=== PATIENT | female | born 1950 | race African-American/Black ===

== ENCOUNTER 2020-05-27 03:03 | Inpatient (IN) ==
[2020-05-27] MEDS ORDERED: SODIUM PHOSPHATE IV PRN (06:38)
[2020-05-27] MEDS ORDERED: MAGNESIUM SULF RIDER 4 GM in PREMIX 1 EACH IV PRN (06:38)
[2020-05-27] MEDS ORDERED: GLUCAGON 1 MG VIAL IM PRN ×2 (06:38→08:16)
[2020-05-27] MEDS ORDERED: DEXTROSE 50% 25 GM/50 ML VIAL IV PRN ×3 (06:38→08:16)
[2020-05-27] MEDS ORDERED: ONDANSETRON 4 MG/2 ML VIAL IV PRN (06:38)
[2020-05-27] MEDS ORDERED: SODIUM CHLORIDE 0.9% IV PRN (06:38)
[2020-05-27] MEDS ORDERED: MAGNESIUM SULF RIDER 2 GM in PREMIX 1 EACH IV PRN (06:38)
[2020-05-27] MEDS ORDERED: SODIUM BICARB INJ 100 MEQ in STERILE WATER INJ 400 ML IV PRN (06:38)
[2020-05-27] MEDS ORDERED: INSULIN REGULAR 100 UNIT/ML IV ONE (06:38)
[2020-05-27] MEDS ORDERED: SODIUM CHLORIDE 0.9% 1,000 ML IV ONE (06:38)
[2020-05-27] MEDS ORDERED: POTASSIUM CHLORIDE RIDER 10 MEQ in PREMIX 1 EACH IV PRN (06:38)
[2020-05-27 06:59] LABS: Basophils % 0.2 % (0.0-0.8); Eosinophils % 0.1 % (0.00-10.9); Hematocrit 30.7 VOL% (35.7-47.0); Immature Granulocytes % 0.4 %; Immature Granulocytes Absolute 0.04 #; Lymphocytes # 2.4 10*3/uL (1.4-4.0); Lymphocytes % 21.3 % (21.3-54.2); Mean Corpuscular HGB Conc 32.6 GM/DL (32-36); Mean Corpuscular Volume 90.3 FL (87-102); Mean Platelet Volume 8.5 FL (9.6-12.0); Monocytes % 8.9 % (1.7-12.7); Neutrophils % 69.1 % (38.7-73.9); Platelet Count 373 T/CUMM (130-400); Red Cell Distribution Width 13.6 % (9.3-17.3); White Blood Count 11.4 T/CUMM (4-12)
[2020-05-27] MEDS ORDERED: INSULIN REGULAR DRIP 100 ML IV SCH (07:00)
[2020-05-27 07:12] LABS: Bilirubin,Urine Negative (Negative); Blood, Urine Moderate mg/dL (Negative); Glucose,Urine (UA) >=500 mg/dL (Negative); Hyaline Casts,Urine 466 /LPF (0-3); Ketones,Urine Negative (Negative); Mucus,Urine Occasional /LPF (Occasional); Nitrite,Urine Negative (Negative); Protein,Urine 100 MG/DL; Red Blood Cell Casts,Urine 3 /LPF (<1); Urine Appearance CLOUDY (Clear); Urine Color Yellow (Yellow); Urine Urobilinogen < 2.0 EU/DL (0.2-1.0); WBC,Urine 19 /HPF (0-6)
[2020-05-27 07:27] LABS: ABG Base Excess -7.1 MMOL/L (-2.5-2.5); ABG HCO3 18.6 MMOL/L (20-26); ABG Oxygen Saturation 98.7 % (95-100); ABG PCO2 24.6 MM HG (35-48); ABG TCO2 14.3 MMOL/L (23-27); Allen Test Positive
[2020-05-27] MEDS ORDERED: SODIUM CHLORIDE 0.9% 1,000 ML IV SCH ×2 (07:38→11:38)
[2020-05-27 07:43] LABS: Alanine Aminotransferase 44 U/L (13-56); Alkaline Phosphatase 132 U/L (45-117); Aspartate Amino Transferase 35 U/L (0-37); Bilirubin,Total < 0.39 MG/DL (0.2-1.0); Blood Urea Nitrogen 11 MG/DL (7-18); Calcium 7.6 MG/DL (8.5-10.1); Estimated Glom Filtration Rate 92 ML/MIN; Glucose 175 MG/DL (74-106); Osmolality,Calculated 283.3 MOS/KG (273-304); Total Protein 5.5 G/DL (6.4-8.3)
[2020-05-27 07:57] LABS: Risk Ratio 3.43; Thyroid Stimulating Hormone 0.573 uIU/ml (0.358-3.74); VLDL CHOLESTEROL 28.6 MG/DL
[2020-05-27] MEDS: ENOXAPARIN 40 MG/0.4 ML SYRINGE SUBCUT SCH (08:09)
[2020-05-27] MEDS ORDERED: FAMOTIDINE 20 MG/2 ML VIAL IV SCH (08:30)
[2020-05-27] MEDS: HYDROmorphone 2 MG/1 ML VIAL IV PRN ×2 (08:59→17:48)
[2020-05-27] MEDS ORDERED: PANTOPRAZOLE 40 MG TABLET PO SCH (09:00)
[2020-05-27] MEDS: PANTOPRAZOLE 40 MG TABLET PO SCH ×2 (09:03→21:16)
[2020-05-27] MEDS: INSULIN GLARGINE 100 UNIT/ML SUBCUT SCH ×2 (09:13→09:29)
[2020-05-27] MEDS: POTASSIUM CHLORIDE 20 MEQ TABLET PO SCH ×4 (09:19→21:15)
[2020-05-27] MEDS: MAGNESIUM SULF RIDER 4 GM in PREMIX 1 EACH IV SCH ×2 (09:50→16:24)
[2020-05-27] MEDS: DEXT 5% LACT RING KCL 20 MEQ 20 MEQ/1,000 ML BAG IV SCH ×3 (09:50→23:10)
[2020-05-27] MEDS: INSULIN LISPRO 100 UNIT/ML SUBCUT SCH ×4 (10:23→21:16)
[2020-05-27] MEDS ORDERED: NON-FORMULARY MEDICATION (Zolpidem [Ambien] 10 MG) PO SCH (12:00)
[2020-05-27 12:21] LABS: Calcium 7.6 MG/DL (8.5-10.1); Osmolality,Calculated 288.1 MOS/KG (273-304)
[2020-05-27 18:56] LABS: Calcium 7.8 MG/DL (8.5-10.1)
[2020-05-27 18:57] LABS: Osmolality,Calculated 281.3 MOS/KG (273-304)
[2020-05-27] MEDS: ZALEPLON 5 MG CAPSULE PO PRN (21:51)
[2020-05-27] MEDS ORDERED: SODIUM CHLORIDE 0.45% 1,000 ML IV SCH (23:38)
[2020-05-28] MEDS: DEXT 5% LACT RING KCL 20 MEQ 20 MEQ/1,000 ML BAG IV SCH ×6 (03:05→22:00)
[2020-05-28] MEDS: INSULIN LISPRO 100 UNIT/ML SUBCUT SCH ×6 (03:06→21:59)
[2020-05-28 04:04] LABS: Basophils % 0.2 % (0.0-0.8); Eosinophils % 0.4 % (0.00-10.9); Hematocrit 29.9 VOL% (35.7-47.0); Immature Granulocytes % 0.4 %; Immature Granulocytes Absolute 0.03 #; Lymphocytes # 1.9 10*3/uL (1.4-4.0); Lymphocytes % 22.7 % (21.3-54.2); Mean Corpuscular HGB Conc 33.4 GM/DL (32-36); Mean Corpuscular Volume 88.7 FL (87-102); Mean Platelet Volume 8.9 FL (9.6-12.0); Monocytes % 7.2 % (1.7-12.7); Neutrophils % 69.1 % (38.7-73.9); Platelet Count 349 T/CUMM (130-400); Red Blood Count 3.37 MC/CUMM (3.8-5.5); Red Cell Distribution Width 13.9 % (9.3-17.3); White Blood Count 8.2 T/CUMM (4-12)
[2020-05-28 04:24] LABS: Alanine Aminotransferase 50 U/L (13-56); Albumin 1.9 G/DL (3.4-5.0); Alkaline Phosphatase 134 U/L (45-117); Aspartate Amino Transferase 43 U/L (0-37); Bilirubin,Total < 0.39 MG/DL (0.2-1.0); Blood Urea Nitrogen 4 MG/DL (7-18); Calcium 7.8 MG/DL (8.5-10.1); Estimated Glom Filtration Rate 105 ML/MIN; Glucose 190 MG/DL (74-106); Osmolality,Calculated 280.4 MOS/KG (273-304); Total Protein 5.5 G/DL (6.4-8.3)
[2020-05-28] MEDS: LACTATED RINGERS 1,000 ML IV SCH (07:42)
[2020-05-28] MEDS: INSULIN GLARGINE 100 UNIT/ML SUBCUT SCH (08:36)
[2020-05-28] MEDS: ACETAMINOPHEN 325 MG TABLET PO PRN (08:40)
[2020-05-28] MEDS: PANTOPRAZOLE 40 MG TABLET PO SCH ×2 (08:40→20:46)
[2020-05-28] MEDS ORDERED: propofoL 200 MG/20 ML VIAL IV ONE (09:00)
[2020-05-28] MEDS ORDERED: LIDOCAINE 2% 5 ML VIAL ONE (09:00)
[2020-05-28] MEDS: PHENOL 1.4% THROAT SPRAY 177 ML BOTTLE PO PRN ×3 (10:24→13:30)
[2020-05-28] MEDS: traMADol 50 MG TABLET PO PRN (14:14)
[2020-05-28] MEDS: VERAPAMIL SR 240 MG TABLET PO SCH (16:08)
[2020-05-28] MEDS: HYDROmorphone 2 MG/1 ML VIAL IV PRN (21:08)
[2020-05-28] MEDS: ZALEPLON 5 MG CAPSULE PO PRN (22:03)
[2020-05-29] MEDS: INSULIN LISPRO 100 UNIT/ML SUBCUT SCH ×6 (01:06→20:27)
[2020-05-29] MEDS: traMADol 50 MG TABLET PO PRN ×2 (01:09→13:25)
[2020-05-29] MEDS: LACTATED RINGERS 1,000 ML IV SCH (03:56)
[2020-05-29] MEDS: DEXT 5% LACT RING KCL 20 MEQ 20 MEQ/1,000 ML BAG IV SCH ×3 (04:32→20:25)
[2020-05-29] MEDS: ACETAMINOPHEN 325 MG TABLET PO PRN ×2 (04:33→09:08)
[2020-05-29] MEDS: ENOXAPARIN 40 MG/0.4 ML SYRINGE SUBCUT SCH (06:17)
[2020-05-29] MEDS: PANTOPRAZOLE 40 MG TABLET PO SCH ×2 (09:08→20:26)
[2020-05-29] MEDS: VERAPAMIL SR 240 MG TABLET PO SCH (09:08)
[2020-05-29] MEDS: INSULIN GLARGINE 100 UNIT/ML SUBCUT SCH (09:12)
[2020-05-29 09:20] LABS: Basophils % 0.3 % (0.0-0.8); Eosinophils % 0.5 % (0.00-10.9); Hematocrit 26.7 VOL% (35.7-47.0); Hemoglobin 8.7 GM/DL (12.0-16.0); Immature Granulocytes % 0.5 %; Immature Granulocytes Absolute 0.03 #; Lymphocytes # 1.9 10*3/uL (1.4-4.0); Lymphocytes % 31.2 % (21.3-54.2); Mean Corpuscular HGB Conc 32.6 GM/DL (32-36); Mean Corpuscular Volume 91.4 FL (87-102); Mean Platelet Volume 8.9 FL (9.6-12.0); Monocytes % 12.6 % (1.7-12.7); Neutrophils % 54.9 % (38.7-73.9); Platelet Count 291 T/CUMM (130-400); Red Blood Count 2.92 MC/CUMM (3.8-5.5); Red Cell Distribution Width 13.9 % (9.3-17.3); White Blood Count 6.1 T/CUMM (4-12)
[2020-05-29 09:43] LABS: Calcium 7.6 MG/DL (8.5-10.1)
[2020-05-29] MEDS: HYDROmorphone 2 MG/1 ML VIAL IV PRN ×2 (15:39→20:25)
[2020-05-29] MEDS ORDERED: INSULIN GLARGINE 100 UNIT/ML SUBCUT SCH (16:29)
[2020-05-29] MEDS: VORICONAZOLE INJ 200 MG in SODIUM CHLORIDE 0.9% 100 ML IV SCH (18:54)
[2020-05-30] MEDS: INSULIN LISPRO 100 UNIT/ML SUBCUT SCH ×6 (00:20→20:44)
[2020-05-30] MEDS: traMADol 50 MG TABLET PO PRN ×2 (05:13→10:13)
[2020-05-30] MEDS: VORICONAZOLE INJ 200 MG in SODIUM CHLORIDE 0.9% 100 ML IV SCH ×2 (05:14→17:06)
[2020-05-30 06:14] LABS: Basophils % 0.4 % (0.0-0.8); Eosinophils # 0.1 10*3/uL (0.0-0.87); Eosinophils % 0.9 % (0.00-10.9); Hemoglobin 9.6 GM/DL (12.0-16.0); Immature Granulocytes % 1.1 %; Immature Granulocytes Absolute 0.09 #; Lymphocytes # 3.6 10*3/uL (1.4-4.0); Lymphocytes % 42.1 % (21.3-54.2); Mean Corpuscular Volume 95.7 FL (87-102); Mean Platelet Volume 8.9 FL (9.6-12.0); Monocytes % 12.5 % (1.7-12.7); NRBC # 0.02 10*3/uL; Platelet Count 383 T/CUMM (130-400); Red Blood Count 3.24 MC/CUMM (3.8-5.5); White Blood Count 8.5 T/CUMM (4-12)
[2020-05-30 06:41] LABS: % Iron Saturation 19.1 % (18-50); Ferritin 347.7 ng/ml (8-252)
[2020-05-30 06:55] LABS: Calcium 8.4 MG/DL (8.5-10.1); Osmolality,Calculated 275.5 MOS/KG (273-304)
[2020-05-30 06:57] LABS: Folate 7.1 NG/ML (5.4-24.0); Vitamin B12 1640 PG/ML (211-911)
[2020-05-30 07:30] LABS: Sedimentation Rate-Westergren 104 MM/HR (0-30)
[2020-05-30 08:04] LABS: Hemoglobin A1 (Alkaline) 97.6 % (96.5-98.5); Hemoglobin A2 (Alkaline) 2.4 % (1.5-3.5)
[2020-05-30] MEDS: VERAPAMIL SR 240 MG TABLET PO SCH (09:25)
[2020-05-30] MEDS: PANTOPRAZOLE 40 MG TABLET PO SCH ×2 (09:25→20:47)
[2020-05-30] MEDS: LACTATED RINGERS 1,000 ML IV SCH (09:33)
[2020-05-30] MEDS: MAGNESIUM CHLORIDE 64 MG TABLET PO SCH (17:05)
[2020-05-30] MEDS: FOLIC ACID 1 MG TABLET PO SCH (20:47)
[2020-05-30] MEDS: ZALEPLON 5 MG CAPSULE PO PRN (20:48)
[2020-05-30] MEDS: HYDROmorphone 2 MG/1 ML VIAL IV PRN (20:48)
[2020-05-30] MEDS ORDERED: MELATONIN 3 MG TABLET PO SCH (21:00)
[2020-05-31] MEDS: INSULIN LISPRO 100 UNIT/ML SUBCUT SCH ×6 (00:53→20:38)
[2020-05-31 05:31] LABS: Basophils % 0.3 % (0.0-0.8); Eosinophils # 0.1 10*3/uL (0.0-0.87); Hematocrit 27.3 VOL% (35.7-47.0); Hemoglobin 8.7 GM/DL (12.0-16.0); Immature Granulocytes % 0.9 %; Immature Granulocytes Absolute 0.06 #; Lymphocytes # 2.2 10*3/uL (1.4-4.0); Lymphocytes % 32.2 % (21.3-54.2); Mean Corpuscular HGB Conc 31.9 GM/DL (32-36); Mean Corpuscular Volume 93.5 FL (87-102); Mean Platelet Volume 10.2 FL (9.6-12.0); Monocytes % 13.9 % (1.7-12.7); Neutrophils % 51.7 % (38.7-73.9); Red Blood Count 2.92 MC/CUMM (3.8-5.5); White Blood Count 6.8 T/CUMM (4-12)
[2020-05-31] MEDS: VORICONAZOLE INJ 200 MG in SODIUM CHLORIDE 0.9% 100 ML IV SCH ×2 (05:51→17:28)
[2020-05-31 05:54] LABS: Calcium 8.7 MG/DL (8.5-10.1); Osmolality,Calculated 271.7 MOS/KG (273-304)
[2020-05-31 06:03] LABS: Platelet Count 297 T/CUMM (130-400)
[2020-05-31 06:32] LABS: Hypochromasia 1+; Microcytosis 1+; Polychromasia Slight
[2020-05-31] MEDS: traMADol 50 MG TABLET PO PRN ×2 (07:30→16:33)
[2020-05-31] MEDS: PANTOPRAZOLE 40 MG TABLET PO SCH ×2 (08:32→20:33)
[2020-05-31] MEDS: MAGNESIUM CHLORIDE 64 MG TABLET PO SCH (08:32)
[2020-05-31] MEDS: INSULIN GLARGINE 100 UNIT/ML SUBCUT SCH (08:32)
[2020-05-31] MEDS: VERAPAMIL SR 240 MG TABLET PO SCH (08:32)
[2020-05-31] MEDS: CHOLECALCIFEROL 1,000 UNIT TABLET PO SCH (08:32)
[2020-05-31] MEDS: LACTATED RINGERS 1,000 ML IV SCH (08:34)
[2020-05-31] MEDS: HYDROmorphone 2 MG/1 ML VIAL IV PRN (09:23)
[2020-05-31] MEDS: POLYETHYLENE GLYCOL POWDER 17 GM PACK PO SCH (12:57)
[2020-05-31] MEDS: DOCUSATE SODIUM 100 MG CAPSULE PO SCH ×2 (12:57→20:33)
[2020-05-31] MEDS: FOLIC ACID 1 MG TABLET PO SCH (20:33)
[2020-05-31] MEDS ORDERED: ZALEPLON 5 MG CAPSULE PO SCH (21:00)
[2020-06-01] MEDS: INSULIN LISPRO 100 UNIT/ML SUBCUT SCH ×4 (00:43→12:39)
[2020-06-01] MEDS: ACETAMINOPHEN 325 MG TABLET PO PRN ×2 (04:13→09:33)
[2020-06-01] MEDS: VORICONAZOLE INJ 200 MG in SODIUM CHLORIDE 0.9% 100 ML IV SCH (06:07)
[2020-06-01 06:15] LABS: Basophils % 0.4 % (0.0-0.8); Eosinophils % 0.3 % (0.00-10.9); Hematocrit 26.2 VOL% (35.7-47.0); Hemoglobin 8.3 GM/DL (12.0-16.0); Immature Granulocytes % 0.4 %; Immature Granulocytes Absolute 0.03 #; Lymphocytes # 1.9 10*3/uL (1.4-4.0); Lymphocytes % 25.1 % (21.3-54.2); Mean Corpuscular HGB Conc 31.7 GM/DL (32-36); Mean Corpuscular Volume 93.2 FL (87-102); Mean Platelet Volume 9.1 FL (9.6-12.0); Monocytes % 15.3 % (1.7-12.7); Neutrophils % 58.5 % (38.7-73.9); Platelet Count 387 T/CUMM (130-400); Red Blood Count 2.81 MC/CUMM (3.8-5.5); Red Cell Distribution Width 14.1 % (9.3-17.3); White Blood Count 7.7 T/CUMM (4-12)
[2020-06-01 06:52] LABS: Calcium 7.9 MG/DL (8.5-10.1); Osmolality,Calculated 272.1 MOS/KG (273-304)
[2020-06-01] MEDS: MAGNESIUM CHLORIDE 64 MG TABLET PO SCH (09:29)
[2020-06-01] MEDS: VERAPAMIL SR 240 MG TABLET PO SCH (09:29)
[2020-06-01] MEDS: CHOLECALCIFEROL 1,000 UNIT TABLET PO SCH (09:29)
[2020-06-01] MEDS: DOCUSATE SODIUM 100 MG CAPSULE PO SCH (09:29)
[2020-06-01] MEDS: PANTOPRAZOLE 40 MG TABLET PO SCH (09:29)
[2020-06-01] MEDS: POLYETHYLENE GLYCOL POWDER 17 GM PACK PO SCH (09:30)
[2020-06-01] MEDS: INSULIN GLARGINE 100 UNIT/ML SUBCUT SCH (09:35)
[2020-06-01 11:55] VITALS: BP 139/73
[2020-06-02 16:21] LABS: Soluble Transf Receptor (sTfR) 1.8 mg/L (1.8 - 4.6)
== END 2020-06-01 13:15 | disposition home or self-care (01) | DRG 637 ==
LOC: N.ICU 06:17 → SUATTDRO 06:17 → N.4E 05-28 16:59
PROVIDERS: ADMIT Phlebology; ATTEND Internal Medicine Critical Care Medicine